=== PATIENT | male | born 1960 | race Caucasian/White ===

== ENCOUNTER → 2019-01-11 | Outpatient (CLI) | payer OTHER | END | disposition home or self-care (01) | LOC: LABPAT 13:41 | PROVIDERS: ATTEND Surgery | DX: Z01.818 Encounter for other preprocedural examination (principal); K43.9 Ventral hernia without obstruction or gangrene | CPT/HCPCS: 93005 ==

== ENCOUNTER 2019-01-14 07:25 | Day surgery (SDC) | payer OTHER ==
[2019-01-10 13:00] VITALS: BMI 26.4
[~2019-01-14 07:25] MED LIST: DEXAMETHASONE SOD PHOSPHATE 10 MG/ML 1 ML VIAL IV ONE; HEPARIN SODIUM,PORCINE 5,000 UNIT/ML 1 ML VIAL SQ ONE; HYDROmorphone 0.5 MG/0.5 ML SYRINGE IVP PRN; LACTATED RINGERS 1,000 ML IV SCH; LIDOCAINE 1% 20 ML VIAL (10MG/ML) FOR IV START INTRADERMA PRN; MIDAZOLAM (PF) 2 MG/2 ML VIAL IV PRN; ONDANSETRON 4 MG/2 ML VIAL IVP ONE; SCOPOLAMINE 1.5MG/72HR PATCH TRANSDERM ONE; ceFAZolin IN SWFI 2 GM/20 ML SYRINGE IVP ONE
[2019-01-14] MEDS ORDERED: LIDOCAINE 1% INJ 10MG/ML (20 ML MDV) ONE (10:10)
[2019-01-14] MEDS ORDERED: fentaNYL (PF) 50 MCG/ML 2 ML AMP ONE (10:10)
[2019-01-14] MEDS ORDERED: SUCCINYLCHOLINE CHLORIDE 100 MG/5 ML SYR IV ONE (10:10)
[2019-01-14] MEDS ORDERED: PROPOFOL 10 MG/ML 20 ML VIAL IV ONE (10:10)
[2019-01-14] MEDS ORDERED: MIDAZOLAM 2 MG/2 ML VIAL ONE (10:10)
[2019-01-14] MEDS ORDERED: ROCURONIUM BROMIDE 10 MG/ML 10 ML VIAL IV ONE (10:10)
[2019-01-14] MEDS ORDERED: BUPIVACAINE-EPI 0.5%-1:200,000 10 ML VIAL SQ ONE (10:38)
[2019-01-14 11:26] VITALS: TEMP 98.5
[2019-01-14] MEDS ORDERED: HYDROcodone/APAP 5-325MG 1 EACH TAB PO PRN (12:03)
[2019-01-14] MEDS ORDERED: NALOXONE 0.4 MG/ML 1 ML VIAL IV PRN (12:03)
--- NOTE | 2019-01-14 12:06 | P.OP ---
Date of Procedure: 01/14/19 Procedure(s) Performed: PREOPERATIVE DIAGNOSIS: Incarcerated the ventral hernia POSTOPERATIVE DIAGNOSIS: Same PROCEDURE: Incarcerated the ventral hernia repair with mesh SURGEON: Mitzy EBL: Minimal ANESTHESIA: Gen. COMPLICATIONS: None OPERATIVE PROCEDURE: Patient placed on the operating table in the supine position. Abdomen was prepped and draped in usual sterile fashion. A vertical incision was made overlying the palpable mass. This was present midway between the umbilicus and xiphoid. Dissection through the subcutaneous tissues took place using electrocautery. The patient had a bilobed hernia sac with a single fascial defect. This was carefully dissected and reduced back into the preperitoneal space. The defect in the fascia measured 2.5 x 1.5 cm. The 6 cm ventral ex mesh was placed beneath the fascial defect after freeing up the preperitoneal fat and making a space for the mesh. The mesh was sutured in place using trans-fascial 0 Ethibond sutures. The fascial defect was then closed horizontally using an overlapping technique. This was performed using interrupted 0 Ethibond sutures. The folding edge was tacked down using interrupted 0 Ethibond sutures as well. The subcutaneous tissues were closed using 3-0 Vicryl sutures. The skin was closed using 4-0 Monocryl sutures. S terile dressings and skin glue were applied. DISPOSITION: Stable to recovery room
[2019-01-14] MEDS ORDERED: IBUPROFEN 200 MG TAB PO ONE (12:30)
[2019-01-14 12:55] VITALS: BP 146/82; PULSE 76; RESP 18
== END 2019-01-14 12:56 | disposition home or self-care (01) ==
LOC: OR 07:25
PROVIDERS: ATTEND Surgery
DX: K43.6 Other and unspecified ventral hernia with obstruction, without gangrene (principal); E78.00 Pure hypercholesterolemia, unspecified; N40.0 Benign prostatic hyperplasia without lower urinary tract symptoms; J45.909 Unspecified asthma, uncomplicated; K21.9 Gastro-esophageal reflux disease without esophagitis; E78.5 Hyperlipidemia, unspecified; Z79.899 Other long term (current) drug therapy; Z91.041 Radiographic dye allergy status; Z88.0 Allergy status to penicillin; Z91.048 Other nonmedicinal substance allergy status; Z91.09 Other allergy status, other than to drugs and biological substances
CPT/HCPCS: 49561; 49568; C1781; J2250; J1644; J1100; J2405; J2001; J3010; J0330; J2704; J0690

== ENCOUNTER → 2021-01-04 | Outpatient (CLI) | payer BC ==
[2021-01-04 13:07] LABS: Basophils # (A) 0.1 k/uL (0-0.2); Basophils % (A) 1 %; Eosinophils # (A) 0.2 k/uL (0-0.7); Eosinophils % (A) 3 %; HCT 44.4 % (39.0-53.0); HGB 14.5 gm/dL (13.0-17.5); Lymphocytes # (A) 2.1 k/uL (1.0-4.8); Lymphocytes % (A) 26 %; MCH 32.2 pg (25.0-35.0); MCHC 32.6 g/dL (31.0-37.0); MCV 98.8 fL (80.0-100.0); Mean Platelet Volume 7.1; Monocytes # (A) 0.8 k/uL (0-1.0); Monocytes % (A) 9 %; Neutrophils # (A) 4.9 k/uL (1.3-7.7); Neutrophils % (A) 60 %; Platelet Count 289 k/uL (150-450); RDW 13.8 % (11.5-15.5); WBC 8.3 k/uL (3.8-10.6)
== END | disposition home or self-care (01) ==
LOC: LABPAT 11:45
PROVIDERS: ATTEND Surgery
DX: K40.90 Unilateral inguinal hernia, without obstruction or gangrene, not specified as recurrent (principal)
CPT/HCPCS: 36415; 85025

== ENCOUNTER 2021-01-14 10:00 | Day surgery (SDC) | payer BC, OTHER ==
[2021-01-07 12:23] VITALS: BMI 27.1
[~2021-01-14 10:00] MED LIST changes: +ACETAMINOPHEN TAB 500 MG TAB PO PRN; -DEXAMETHASONE SOD PHOSPHATE 10 MG/ML 1 ML VIAL IV ONE; +DEXAMETHASONE SOD PHOSPHATE 4 MG/ML 1 ML VIAL IV ONE; -HEPARIN SODIUM,PORCINE 5,000 UNIT/ML 1 ML VIAL SQ ONE; +HEPARIN SODIUM,PORCINE 5,000 UNIT/ML 1 ML VIAL SQ PRN; -LIDOCAINE 1% 20 ML VIAL (10MG/ML) FOR IV START INTRADERMA PRN; -MIDAZOLAM (PF) 2 MG/2 ML VIAL IV PRN; +MIDAZOLAM 2 MG/2 ML VIAL IV PRN; -ceFAZolin IN SWFI 2 GM/20 ML SYRINGE IVP ONE
[2021-01-14] MEDS ORDERED: MIDAZOLAM 2 MG/2 ML VIAL IV ONE (11:49)
[2021-01-14] MEDS ORDERED: fentaNYL (PF) 50 MCG/ML 2 ML AMP IV ONE (11:49)
--- NOTE | 2021-01-14 12:26 | P.ANPRN ---
Procedure Note - Anesthesia - Nerve Block Performed Bilateral Erector Spinae Single Time Out Performed: Yes Date of Procedure: 01/14/21 Procedure Start Time: 11:49 Procedure Stop Time: 11:58 Location of Patient: PreOp Indication: Requested by Surgeon Specifically requested for management of pain by DrTyson: Fran Forrester Sedation Type: Sedate with meaningful contact maintained Preparation: Sterile Prep Position: Prone Needle Types: Pajunk Needle Gauge: 21 Ultrasound used to visualize needle placement: Yes Ultrasound used to observe medication spread: Yes Injectate: Other (see comment) (Ropivacaine 0.25 % 30 ml plus DExamethason 4 mg per side) Blood Aspirated: No Pain Paresthesia on Injection Noted: No Resistance on Injection: Normal Image Stored and Saved: Yes Events: Uneventful and Well Tolerated (Block done as multimodel pain management ,for post op pain control)
--- NOTE | 2021-01-14 12:30 | P.GSHP ---
History of Present Illness H&P Date: 01/14/21 Chief Complaint: Left inguinal hernia, umbilical hernia 60-year-old male here today for repair left inguinal and umbilical hernia. Patient with history of previous ventral hernia repair with mesh. Mild pain in left groin. Hernia increasing in size. No nausea or vomiting. No change in bowel habits. Past Medical History Past Medical History: Asthma, Respiratory Disorder Additional Past Medical History / Comment(s): HX ESOPHAGEAL STRICTURE. FX RIB 09/2018. hx ulcer as teen, History of Any Multi-Drug Resistant Organisms: None Reported Past Surgical History: Hernia Repair Additional Past Surgical History / Comment(s): COLONOSCOPY, EGD W/ DILATION. VENTRAL HERNIA REPAIR Past Anesthesia/Blood Transfusion Reactions: No Reported Reaction Smoking Status: Never smoker - Past Family History Mother Family Medical History: No Reported History Medications and Allergies Home Medications Medication Instructions Recorded Confirmed Type Albuterol Sulfate [Albuterol 2 puff PO Q4HR PRN 01/07/21 01/14/21 History Sulfate Hfa] Ibuprofen 200 mg PO Q8H 01/07/21 01/14/21 History Multivitamins, Thera [Multivitamin 1 tab PO DAILY 01/07/21 01/14/21 History (formulary)] Allergies Allergy/AdvReac Type Severity Reaction Status Date / Time Iodine and Iodide Containing Allergy SURGICAL Verified 01/14/21 11:08 Produc SCRUB CAUSED REDNESS, IRRITATION, POSS INFECTION Penicillins Allergy Unknown Verified 01/14/21 11:08 Childhood SURGICAL SCRUB Allergy REDNESS OF Uncoded 01/14/21 11:08 SKIN SURGICAL JOEY Allergy DEVELOPED Uncoded 01/14/21 11:08 POST-OP INFECTION, UNSURE IF THIS WAS CAUSE Surgical - Exam Vital Signs Temp Pulse Resp BP Pulse Ox 97.4 F L 62 18 141/82 98 01/14/21 11:25 01/14/21 11:25 01/14/21 11:25 01/14/21 11:25 01/14/21 11:25 Physical exam: General: Well-developed, well-nourished HEENT: Normocephalic, sclerae nonicteric Abdomen: Nontender, nondistended, previous upper midline scar noted, reducible umbilical hernia noted, reducible left inguinal hernia noted Extremities: No edema Neuro: Alert and oriented Assessment and Plan (1) Left inguinal hernia Narrative/Plan: Will proceed with laparoscopic da Khai assisted repair left inguinal hernia with mesh, possible bilateral, possible open along with open umbilical hernia repair with probable mesh. Risks of bleeding, infection, recurrence, bladder and bowel injury, numbness, nerve injury, conversion to an open procedure were discussed with the patient. The patient understands and wishes to proceed. Current Visit: Yes Status: Acute Code(s): K40.90 - UNIL INGUINAL HERNIA, W/O OBST OR GANGR, NOT SPCF RECUR [facility] [place] Code(s): 259365086
[2021-01-14] MEDS ORDERED: SODIUM CHLORIDE 0.9% (PF) 10 ML VIAL ONE (12:44)
[2021-01-14] MEDS ORDERED: MIDAZOLAM 2 MG/2 ML VIAL ONE (12:44)
[2021-01-14] MEDS ORDERED: PROPOFOL 10 MG/ML 20 ML VIAL IV ONE (12:44)
[2021-01-14] MEDS ORDERED: fentaNYL (PF) 50 MCG/ML 2 ML AMP ONE (12:44)
[2021-01-14] MEDS ORDERED: ROPIVACAINE 5 MG/ML 30 ML VIAL ONE (12:44)
[2021-01-14] MEDS ORDERED: DEXAMETHASONE SOD PHOSPHATE 4 MG/ML 1 ML VIAL ONE (12:44)
[2021-01-14] MEDS ORDERED: ePHEDrine SULFATE/0.9% NACL/PF 50 MG/5 ML SYRINGE IV ONE (12:44)
[2021-01-14] MEDS ORDERED: GLYCOPYRROLATE 0.2 MG/ML 2 ML VIAL ONE (12:44)
[2021-01-14] MEDS ORDERED: SUCCINYLCHOLINE CHLORIDE 100 MG/5 ML SYR IV ONE (12:44)
[2021-01-14] MEDS ORDERED: LIDOCAINE 1% INJ 10MG/ML (20 ML MDV) ONE (12:44)
[2021-01-14] MEDS ORDERED: ROCURONIUM 10 MG/ML (5 ML VIAL) IV ONE (12:44)
[2021-01-14] MEDS ORDERED: NEOSTIGMINE 1 MG/ML 10 ML VIAL ONE (12:44)
[2021-01-14] MEDS ORDERED: BUPIVACAINE-EPI 0.5%-1:200,000 10 ML VIAL SQ ONE (13:12)
[2021-01-14] MEDS ORDERED: LACTATED RINGERS 1,000 ML IV ONE ×2 (14:14)
[2021-01-14] MEDS ORDERED: TAMSULOSIN 0.4 MG CAP.ER.24H PO STA (14:52)
[2021-01-14 14:54] VITALS: RESP 16; TEMP 97.2
--- NOTE | 2021-01-14 14:58 | P.OP ---
Date of Procedure: 01/14/21 Procedure(s) Performed: PREOPERATIVE DIAGNOSIS: Left inguinal hernia, umbilical hernia POSTOPERATIVE DIAGNOSIS: Same PROCEDURE: Laparoscopic repair left inguinal hernia with the da Khai robot assistance with mesh, open repair umbilical hernia SURGEON: Mitzy EBL: Minimal ANESTHESIA: General COMPLICATIONS: None OPERATIVE PROCEDURE: Patient was placed in the operating table in the supine position. The patient was placed under general anesthesia. The abdomen was prepped and draped in usual sterile fashion. A small curvilinear supraumbilical incision was made. The patient's hernia sac was carefully dissected from the fascia. The fascial defect was relatively small measuring only about 8-9 mm in diameter. The hernia sac was excised. The fascia was freed. I entered the peritoneal cavity through the hernia sac visibly. An 8 mm trocar was advanced into the peritoneal cavity and later switched to a 12 mm as it was slightly loose. Insufflation took place to 15 mmHg. 2 additional 8 mm trochars were placed in the right upper quadrant and left upper quadrant under visualization. The robotic arms were then brought in and docked into place. The fenestrated bipolar was used in the left arm and the laparoscopic yvan was utilized in the right arm. A 30 8 mm scope was used in the up position. The peritoneal cavity was inspected. The patient had a moderate-sized left indirect inguinal hernia. There was some induration of the hernia sac. The peritoneum was incised in a horizontal fashion cephalad to the internal inguinal ring. Following that careful dissection of the preperitoneal space took place. This took place using both electrocautery, sharp dissection but primarily blunt dissection. Visualization of the pubic tubercle and Cipriano's ligament took place medially. Full dissection took place laterally as well. The hernia sac was fully dissected. In doing so there were a few linear tears in the peritoneum from the inflammatory changes of the hernia sac. Once we had adequate space the Bard 3-D XL mesh was advanced into the preperitoneal space and flattened out appropriately to cover all potential hernia sites. No sutures were used. The peritoneal defect was then closed using a locking 2-0 VLok suture. The hernia sac was incorporated into the perineal closure. The pneumoperitoneum was then evacuated. The fascia at the umbilical hernia site was closed using 3 separate [id number] 0 Ethibond sutures. No mesh was placed. The umbilicus was sutured back down to the fascia using a 3-0 Vicryl stitch. Skin was closed using 4-0 Monocryl interrupted sutures. Skin glue was then applied. DISPOSITION: Stable to recovery room
[2021-01-14 16:28] VITALS: BP 112/70; PULSE 85
[2021-01-14] MEDS ORDERED: ACETAMINOPHEN TAB 325 MG TAB PO SCH (18:00)
[2021-01-14] MEDS ORDERED: IBUPROFEN 600 MG TAB PO SCH (21:00)
== END 2021-01-14 17:13 | disposition home or self-care (01) ==
LOC: OR 10:00
PROVIDERS: ATTEND Surgery
DX: K42.9 Umbilical hernia without obstruction or gangrene (principal); K40.90 Unilateral inguinal hernia, without obstruction or gangrene, not specified as recurrent; J45.909 Unspecified asthma, uncomplicated; E78.5 Hyperlipidemia, unspecified; K22.2 Esophageal obstruction; J98.9 Respiratory disorder, unspecified; Z87.81 Personal history of (healed) traumatic fracture; Z98.890 Other specified postprocedural states; E78.00 Pure hypercholesterolemia, unspecified; N40.0 Benign prostatic hyperplasia without lower urinary tract symptoms; Z86.010 Personal history of colon polyps; Z83.79 Family history of other diseases of the digestive system; Z91.048 Other nonmedicinal substance allergy status; Z88.0 Allergy status to penicillin; Z79.1 Long term (current) use of non-steroidal anti-inflammatories (NSAID); Z79.899 Other long term (current) drug therapy; Z79.52 Long term (current) use of systemic steroids; Z91.09 Other allergy status, other than to drugs and biological substances
CPT/HCPCS: 49585; 49650; S2900; 64999; 76942; 93005

== ENCOUNTER → 2022-05-26 | Outpatient (CLI) | payer BC ==
[2022-05-26 14:04] LABS: Partial Thromboplastin Time 26.5 sec (22.0-30.0)
[2022-05-26 17:48] LABS: HCT 47.6 % (39.6-50.0); MCH 31.8 pg (27.0-32.0); MCHC 31.5 g/dL (32.0-37.0); MCV 101.1 fL (80.0-97.0); Mean Platelet Volume 10.9 fL (9.5-12.2); NRBC Per 100 WBC 0 /100 WBCS (0.0-0.0); Platelet Count 313 X 10*3/uL (140-440); RBC 4.71 X 10*6/uL (4.40-5.60); RDW 13.8 % (11.5-14.5); WBC 8.35 X 10*3/uL (4.50-10.00)
[2022-05-26 18:03] LABS: African American GFR (CKD) 111.5 (60.0-200.0); Albumin 4.6 g/dL (3.8-4.9); Albumin/Globulin Ratio 1.71 (1.60-3.17); BUN/Creat Ratio 23.69 Ratio (12.00-20.00); Blood Urea Nitrogen 19.4 mg/dL (9.0-27.0); Calcium 9.8 mg/dL (8.7-10.3); Carbon Dioxide 27.9 mmol/L (20.0-27.5); Globulin 2.7 g/dL (1.6-3.3); Non-African American GFR(CKD) 96.2 (60.0-200.0); Potassium 5.4 mmol/L (3.5-5.5); Total Bilirubin 0.5 mg/dL (0.30-1.20); Total Protein 7.3 g/dL (6.2-8.2)
[2022-05-26 22:24] LABS: Appearance,Urine Clear (Clear); Bilirubin,Urine Negative (Negative); Blood,Urine Negative (Negative); Color,Urine Yellow (Yellow); Ketones,Urine Negative (Negative); Nitrite,Urine Negative (Negative); Specific Gravity,Urine 1.016 (1.001-1.030)
[2022-05-26 22:30] LABS: Prothrombin Time 10.5 sec (9.0-12.0)
== END | disposition home or self-care (01) ==
LOC: LABPAT 12:03
PROVIDERS: ATTEND Orthopaedic Surgery
DX: Z01.812 Encounter for preprocedural laboratory examination (principal); M16.12 Unilateral primary osteoarthritis, left hip
CPT/HCPCS: 36415; 80053; 81003; 85027; 85610; 85730; 87070

== ENCOUNTER → 2022-06-10 | Outpatient (CLI) | payer BC ==
--- NOTE | 2022-06-10 11:52 | CA ---
Stress Echo Report Alphonso Fuentes Age: 62 Gender: M : 1960 Exam Date: 06/10/2022 10:07 Exam Location: [place] [facility] Ht (in): 73 Wt (lb): 200 Ordering Physician: Ryan Thompson DO ([email or web address]) Referring Physician: RYAN THOMPSON,, Cloth Spreader Screen Printing: Julianne Mayer RDCS Technologist Procedure CPT: Indication: R94.31 ABNORMAL EKG ICD-9 Codes: Rhythm: Patient History: Cardiac Medications: Medications in past 24 hours: Contrast: Stress Results Protocol: Aldo Total dose(mL): Exercise Duration (min:sec): 9:[address] Depression (mm): Angina Score: Beltran Score: METS: 11.1 Resting HR: 85 Resting BP: 134 / 84 Peak HR: 145 Peak BP: 209 / 76 Max Predicted HR: 160 91 % Max Predicted HR Target HR: 136 Double Product: [id number] Stress Summary: BP Response: Reason for Termination: Cardiac Symptoms: ECG Analysis Resting ECG: Normal sinus rhythm with left axis deviation Stress ECG: Negative stress test by EKG criteria Arrhythmia: Grade PVCs during exercise Echo Analysis Resting Echo: Normal left ventricular size and systolic function with an ejection fraction of 60%. Basal inferior wall appears hypokinetic Peak Echo Analysis: Normal hyperdynamic response of the anterior wall lateral wall septum and mid to distal inferior wall. Basal inferior wall remains hypokinetic MEASUREMENTS (Male/Female) Normal Values CONCLUSIONS Good exercise tolerance Negative stress test by EKG criteria No evidence of exercise-induced ischemia Basal inferior wall is hypokinetic at rest Dr. Cr Mir MD (Electronically Signed) Final Date: 10 June 2022 11:51
== END | disposition home or self-care (01) ==
LOC: RADNMMAIN 09:08
PROVIDERS: ATTEND Internal Medicine
DX: R94.31 Abnormal electrocardiogram [ECG] [EKG] (principal)
CPT/HCPCS: 93351

== ENCOUNTER → 2022-09-24 | Outpatient (CLI) | payer BC ==
[2022-09-24 14:01] LABS: Partial Thromboplastin Time 25.7 sec (22.0-30.0)
[2022-09-24 18:16] LABS: Basophils # (A) 0.06 X 10*3/uL (0.00-0.10); Basophils % (A) 0.7 %; Eosinophils # (A) 0.36 X 10*3/uL (0.04-0.35); HGB 14.5 g/dL (13.0-17.0); Immature Grans, Automated 0.3 %; Lymphocytes # (A) 2.63 X 10*3/uL (0.90-5.00); Lymphocytes % (A) 29.2 %; MCH 33.3 pg (27.0-32.0); MCV 101.1 fL (80.0-97.0); Mean Platelet Volume 10.3 fL (9.5-12.2); Monocytes # (A) 1.06 X 10*3/uL (0.20-1.00); Monocytes % (A) 11.8 %; NRBC Per 100 WBC 0 /100 WBCS (0.0-0.0); Neutrophils # (A) 4.86 X 10*3/uL (1.80-7.70); Platelet Count 359 X 10*3/uL (140-440); RBC 4.35 X 10*6/uL (4.40-5.60); RDW 13.7 % (11.5-14.5)
[2022-09-24 18:27] LABS: African American GFR (CKD) 107.2 (60.0-200.0); Albumin 4.2 g/dL (3.8-4.9); Albumin/Globulin Ratio 1.68 (1.60-3.17); Anion Gap 8.8 mmol/L (10.00-18.00); BUN/Creat Ratio 19.33 Ratio (12.00-20.00); Blood Urea Nitrogen 17.4 mg/dL (9.0-27.0); Calcium 9.6 mg/dL (8.7-10.3); Carbon Dioxide 26.2 mmol/L (20.0-27.5); Globulin 2.5 g/dL (1.6-3.3); Non-African American GFR(CKD) 92.5 (60.0-200.0); Potassium 4.9 mmol/L (3.5-5.5); Total Bilirubin 0.3 mg/dL (0.30-1.20); Total Protein 6.7 g/dL (6.2-8.2)
[2022-09-24 22:05] LABS: Prothrombin Time 10.5 sec (9.0-12.0)
[2022-09-25 01:25] LABS: Appearance,Urine Clear (Clear); Bilirubin,Urine Negative (Negative); Blood,Urine Negative (Negative); Color,Urine Dark Yellow (Yellow); Ketones,Urine Negative (Negative); Nitrite,Urine Negative (Negative); Specific Gravity,Urine 1.017 (1.001-1.030); Urobilinogen,Urine 0.2 (0.2,1.0)
== END | disposition home or self-care (01) ==
LOC: LABPAT 13:19
PROVIDERS: ATTEND Orthopaedic Surgery
DX: Z01.812 Encounter for preprocedural laboratory examination (principal); M16.12 Unilateral primary osteoarthritis, left hip
CPT/HCPCS: 80053; 81003; 85025; 85610; 85730

== ENCOUNTER 2022-10-03 07:30 | Day surgery (SDC) | payer BC ==
[~2022-10-03 07:30] MED LIST changes: +DEXAMETHASONE SOD PHOSPHATE 10 MG/ML 1 ML VIAL IV PRN; -DEXAMETHASONE SOD PHOSPHATE 4 MG/ML 1 ML VIAL IV ONE; +DOCUSATE 100 MG CAP PO PRN; +FAMOTIDINE 20 MG/2 ML VIAL IVP PRN; -HEPARIN SODIUM,PORCINE 5,000 UNIT/ML 1 ML VIAL SQ PRN; -HYDROmorphone 0.5 MG/0.5 ML SYRINGE IVP PRN; +KETOROLAC 15 MG/ML 1 ML VIAL IVP PRN; -ONDANSETRON 4 MG/2 ML VIAL IVP ONE; +ONDANSETRON 4 MG/2 ML VIAL IVP PRN; -SCOPOLAMINE 1.5MG/72HR PATCH TRANSDERM ONE; +TRANEXAMIC ACID IN NACL,ISO-OS 1,000 MG in SALINE 1 100ML.BAG IVPB PRN; +oxyCODONE ER 10 MG TAB.ER.12H PO PRN
[2022-10-03] MEDS ORDERED: MIDAZOLAM 2 MG/2 ML VIAL IVP ONE (09:20)
--- NOTE | 2022-10-03 09:48 | P.ANPRN ---
Procedure Note - Anesthesia - Nerve Block Performed Left Other (see comment) Single Time Out Performed: Yes (EDGAR block) Date of Procedure: 10/03/22 Procedure Start Time: :20 Procedure Stop Time: : Location of Patient: PreOp Indication: Acute Post-Operative Pain, Requested by Surgeon Sedation Type: Sedate with meaningful contact maintained Preparation: Sterile Prep, Sterile Dressing Position: Supine Catheter: None Needle Types: Facet Needle Gauge: 20 Ultrasound used to visualize needle placement: Yes Ultrasound used to observe medication spread: Yes Injectate: 0.5% Ropivacaine (see comment for volume) (30 ml + decadron 4 mg) Blood Aspirated: No Pain Paresthesia on Injection Noted: No Resistance on Injection: Normal Image Stored and Saved: Yes Events: Uneventful and Well Tolerated
[2022-10-03] MEDS ORDERED: DEXAMETHASONE SOD PHOSPHATE 4 MG/ML 1 ML VIAL ONE (10:05)
[2022-10-03] MEDS ORDERED: ROCURONIUM 10 MG/ML (5 ML VIAL) IV ONE (10:05)
[2022-10-03] MEDS ORDERED: fentaNYL (PF) 50 MCG/ML 2 ML AMP ONE (10:05)
[2022-10-03] MEDS ORDERED: MIDAZOLAM 2 MG/2 ML VIAL ONE (10:05)
[2022-10-03] MEDS ORDERED: GLYCOPYRROLATE 0.2 MG/ML 2 ML VIAL ONE (10:05)
[2022-10-03] MEDS ORDERED: ePHEDrine 50 MG/ML 1 ML VIAL ONE (10:05)
[2022-10-03] MEDS ORDERED: NEOSTIGMINE 1 MG/ML 10 ML VIAL ONE (10:05)
[2022-10-03] MEDS ORDERED: TRANEXAMIC ACID IN NACL,ISO-OS 1,000 MG/100 ML BAG ONE (10:05)
[2022-10-03] MEDS ORDERED: SUCCINYLCHOLINE CHLORIDE 200 MG/10 ML VIAL IV ONE (10:05)
[2022-10-03] MEDS ORDERED: PROPOFOL 10 MG/ML 20 ML VIAL IV ONE (10:05)
[2022-10-03] MEDS ORDERED: LIDOCAINE 2% INJ 20 MG/ML (2 ML VIAL) ONE (10:05)
[2022-10-03] MEDS ORDERED: ROPIVACAINE 5 MG/ML 30 ML VIAL ONE (10:05)
[2022-10-03] MEDS ORDERED: TRANEXAMIC ACID 1,000 MG in SODIUM CHLORIDE 0.9% 100 ML IVPB ONE (10:24)
[2022-10-03] MEDS: ROPIVACAINE/EPI/CLONIDINE/KET 50 ML SYRINGE MISCELLANE PRN ×2 (10:44→11:37)
[2022-10-03] MEDS ORDERED: LACTATED RINGERS 1,000 ML IV ONE ×4 (10:49→14:30)
--- NOTE | 2022-10-03 12:17 | P.OP ---
Date of Procedure: 10/03/22 Preoperative Diagnosis: Severe left hip osteoarthritis Postoperative Diagnosis: Same Procedure(s) Performed: Left direct anterior total hip arthroplasty Implants: 1. Ramana Trident II Acetabular Cup, Size #60 2. Ramana Insignia Size #5 Femoral Stem, Standard Offset 3. Biolox delta femoral head, 36mm, -5 neck Anesthesia: RANDA, tahir Surgeon: Omkar Collins Car Starter #1: Danielle Salazar Estimated Blood Loss (ml): 150 IV fluids (ml): 1,200 Pathology: none sent (Routine gross and/or histopathologic evaluation not indicated based on my interpretation of preoperative imagings and intraoperative findings. Intraoperative findings consistent with osteoarthritis) Condition: stable Disposition: PACU Indications for Procedure: I had a long discussion with the patient in the office on the potential risks and complications of an elective total hip replacement through a direct anterior approach. Risks discussed include, but are certainly not limited to, risks from anesthesia, superficial infection requiring local wound care or antibiotics, deep jefe-prosthetic joint infection and the treatment required to eradicate infection, intraoperative fracture, postoperative periprosthetic fracture, damage to local blood vessels or nerves particularly the lateral femoral cutaneous nerve, delayed wound healing requiring local wound care or possibly surgical debridement, hip dislocation, leg length discrepancy, soft tissue irritation around the total hip implant such as iliopsoas tendinitis or trochanteric bursitis, wear and osteolysis from the implants, squeaking or audible noises, groin pain, thigh pain, heterotopic ossification, stiffness, aseptic loosening of the implants, dissatisfaction with surgical outcome, need for revision surgery, DVT, PE, swelling of the operative extremity, acute coronary event, stroke, failure to thrive, and possibly loss of life or limb. The patient understands that while these are the most common complications after an elective hip replacement there are certainly other less common complications possible. They were given ample time to ask questions regarding the potential complications of a hip replacement. Following our discussion the patient p rovided their verbal and written consent to go forward with an elective total hip replacement. Operative Findings: Severe left hip osteoarthritis Description of Procedure: The patient was identified in the preoperative holding area and the correct hip was marked with my initials. I reviewed the procedure and consent with the patient. All of their questions were answered. The patient was then brought back into the operating room by anesthesia. While on the [facility] heart anesthesia was administered by the anesthesia team. Preoperative antibiotics and tranexamic acid were also given. After the patient was under anesthesia I examined their ankles to determine their preoperative leg length discrepancy. The skin over the anterior aspect of the hip was shaved to remove hair over the site of planned incision. Both feet and ankles were padded with webril and boots for the [place] were applied. The patient was then carefully transferred onto the [place] table. A perineal post was immediately placed. The arms were placed on arm holders and were well-padded. Both boots were secured to the spars on the [place] table. The patient was positioned so that the pelvis was centered over the post. Nonsterile drapes were applied. A timeout was performed identifying the correct patient, operative extremity, and procedure. At this point fluoroscopy was brought in to take preoperative images of the pelvis and operative hip. Using the standing AP pelvis from the office as a template, a comparable image was obtained with fluoroscopy. A metallic bar was used to create a bi-ischial line for use as a reference to leg length adjustments during the procedure. Global offset was also measured on both the operative and nonoperative leg. Fluoroscopy was then brought out and a pre-scrub using a chlorhexidine scrub brush was performed. The operative limb was then prepped and draped in the standard sterile fashion. An anterior longitudinal incision was made lateral and distal to the ASIS. The skin and subcutaneous tissues were incised sharply. The underlying tensor fascia was identified and incised in its midportion. The fascia was dissected free from the underlying muscle and the muscle belly was retracted. A blunt tipped cobra retractor was placed over the superior neck under the muscle fibers of the gluteus minimus. The deep enveloping fascia of the tensor was incised. The anterior leash of vessels were then identified and cauterized. The fascia between the rectus and the capsule was then incised and the pre-capsular fat was excised. A second Cobra was placed inferior to the neck. The interval between the rectus and iliocapsularis and the hip capsule was developed and a retractor was placed carefully over the anterior rim of the acetabulum. A T-shaped anterior capsulotomy was performed. The superior capsular leaflet was left in place in the inferior capsular flap was excised. The Cobra retractors were placed intracapsularly. We then made a femoral neck osteotomy according to preoperative and intraoperative templating and confirmed the level of the osteotomy using fluoroscopic imaging. The femoral head was removed, passed off to the back table, and sized. The superior capsular flap was excised. Retractors were placed circumferentially exposing the acetabulum. We then circumferentially debrided the acetabulum free of labrum and osteophytes. The pulvinar was removed to fully visualize the cotyloid fossa. We then sequentially reamed to achieve peripheral fit and excellent bleeding subchondral bone. The socket was thoroughly irrigated. The acetabular component was impacted into the appropriate position using fluoroscopy to guide version, inclination, and depth of insertion taking care to have a comparable image of the AP pelvis to the standing image taken in the office. An excellent press-fit was achieved and final position was confirmed using fluoroscopy. The press fit was augmented with bony cancellus dome screws. The liner was then impacted into the socket. Attention was then turned to the femur. The remnant dorsal lateral capsule was excised. The short external rotators were visible and protected. A bone hook was used to confirm appropriate translation of the trochanter away from the acetabulum. The leg was then extended and adducted and the bone hook was used to elevate the femur for broaching. A box osteotome and blunt tipped canal sound was then utilized to gain access to the femoral canal. We then sequentially broached the femur in appropriate anteversion until excellent torsional stability was achieved. The neck cut was brought flush to the trial broach with a calcar planar. A trial neck and head were then placed onto the broach and the hip was atraumatically reduced under direct visualization. External rotation to 90 was performed to assess stability. Fluoroscopy was brought in. An AP and lateral fluoroscopic image of the proximal femur was obt ained to assess position and fill of the trial broach. An AP of the pelvis was then obtained and matched to the preoperative image taken. A bi-ischial bar was then placed and measurements were taken to assess changes in length and offset. The hip was then carefully dislocated, the proximal femur was exposed, and the trial implants were removed. The wound and proximal femur was thoroughly irriga radha using sterile saline and pulsatile lavage. The final femoral implant was dispensed and gently tapped into place generating an excellent press-fit. The trunnion was cleansed and the final head was tapped into place to engage the Peñaloza taper. The acetabulum was irrigated and visualized to be free of debris. The hip was carefully reduced. Stability was checked clinically with external rotation to 90 and there was no evidence of instability. Final fluoroscopic images were taken. The wound was then thoroughly irrigated and soaked with a dilute Betadine rinse for 3 minutes. 3 L of sterile saline was irrigated through the wound using pulsatile lavage. The wound was then closed in layers. A sterile dressing was placed over the surgical incision and drain site. The drapes were taken down and the patient was carefully transferred off of the [place] table. Following removal of the boots the leg lengths felt acceptable. The patient was then taken to recovery room having tolerated the procedure well. Danielle Salazar PA-C was required as a skilled medical lab assistant for patient positioning, surgical exposure, retraction, placement of implants, and closure of the surgical wound. PLAN: The patient can weight-bear as tolerated on the operative extremity. 2 doses of postoperative antibiotics. DVT prophylaxis with aspirin 81 mg twice a day based on preoperative risk stratification. Physical therapy for gait training. The patient would like to go home today. We will see how he does. If he clears physical therapy he can discharge. If he would like to stay we will keep him overnight.
[2022-10-03 12:20] VITALS: TEMP 98
[2022-10-03] MEDS: HYDROmorphone 0.5 MG/0.5 ML SYRINGE IVP PRN ×4 (12:33→13:07)
[2022-10-03] MEDS ORDERED: ceFAZolin 1,000 MG VIAL IVPB ONE (14:05)
[2022-10-03 16:25] VITALS: BP 118/72; PULSE 74; RESP 16
== END 2022-10-03 16:27 | disposition home health service (06) ==
LOC: OR 07:30
PROVIDERS: ATTEND Orthopaedic Surgery
DX: M16.12 Unilateral primary osteoarthritis, left hip (principal); G89.18 Other acute postprocedural pain; Z96.642 Presence of left artificial hip joint
CPT/HCPCS: 97530; 97161; 64447; 76942; 86900; 86901; 86850; 88300; 27130; C1776; J2250; J0330; J1100 ×2; J2710; J0690 ×2; J2405; J3010; J2795; J1885; J2704; J1170; J2001